=== PATIENT | male | born 1945 | race Caucasian/White ===

== ENCOUNTER 2022-07-19 20:23 | Emergency (ER) | payer OTHER ==
[~2022-07-19] VITALS: Ht 177.8 cm; Wt 75.0 kg
[2022-07-19] MEDS ORDERED: SERT-158 PO (20:49)
[2022-07-19] MEDS ORDERED: RIVA20TA PO (20:49)
[2022-07-19] MEDS ORDERED: FAMO20 PO (20:49)
[2022-07-19] MEDS ORDERED: MELA5TAB40 PO (20:49)
[2022-07-19] MEDS ORDERED: DIVA-112 PO (20:49)
[2022-07-19] MEDS ORDERED: QUET25TA PO (20:49)
[2022-07-19] MEDS ORDERED: CHOL10002 PO (20:49)
[2022-07-19 21:03] LABS: BASOPHILS % (AUTO) 0.6 % (0.0-2.0); HEMATOCRIT 35.2 % (41-53); HEMOGLOBIN 11.8 g/dL (13.5-17.5); LYMPHOCYTES # (AUTO) 2.1 K/uL (1.0-4.8); LYMPHOCYTES % (AUTO) 29.7 % (22.0-44.0); MEAN CORPUSCULAR HEMOGLOBIN 31.7 pg (26.0-34.0); MEAN CORPUSCULAR HGB CONC 33.6 G/dL (31.0-37.0); MEAN CORPUSCULAR VOLUME 94 fL (80-100); MONOCYTES # (AUTO) 0.8 K/uL (0.1-1.0); MONOCYTES % (AUTO) 11.1 % (2.0-9.0); NEUTROPHILS # (AUTO) 3.9 K/uL (1.8-7.7); NEUTROPHILS % (AUTO) 55.6 % (40.0-70.0); PLATELET COUNT (AUTO) 195 K/uL (150-450); RED BLOOD CELL COUNT(AUTO) 3.74 MIL/uL (4.50-5.90); RED CELL DISTRIBUTION WIDTH 13.2 % (11.5-14.5)
[2022-07-19 21:12] LABS: CALCIUM, TOTAL 8.7 mg/dL (8.8-10.5); CREATININE 1.31 mg/dL (0.60-1.30); POTASSIUM 4.2 mmol/L (3.5-5.1)
[2022-07-19 21:18] LABS: ALBUMIN 3.2 g/dL (3.4-5.0); BILIRUBIN,TOTAL 0.2 mg/dL (0.1-1.0); TOTAL PROTEIN, SERUM 6.5 g/dL (6.4-8.2)
[2022-07-19 21:23] LABS: AMMONIA 30 umol/L (11-32)
[2022-07-19 21:44] LABS: COVID AG,FIA SOURCE NASAL SWAB
[2022-07-19] MEDS ORDERED: MIDAZOLAM HCL 2 MG/2 ML VIAL IM ONE (21:45)
[2022-07-19] MEDS ORDERED: QUEtiapine FUMARATE 100 MG TABLET PO ONE (22:30)
[2022-07-19] MEDS ORDERED: MELATONIN 5 MG TABLET PO ONE (22:30)
[2022-07-19 23:43] VITALS: BP 133/73
== END 2022-07-20 03:22 | disposition home or self-care (01) ==
LOC: EMS 20:23
DX: R45.1 Restlessness and agitation (principal); F03.91 Unspecified dementia, unspecified severity, with behavioral disturbance; R00.1 Bradycardia, unspecified; Z20.822 Contact with and (suspected) exposure to COVID-19
CPT/HCPCS: 99291; 70450; 87426; 80053; 80164; 82140; 83605; 84484; 85025; 36415; 71045; 93005; 96372; G0480; J2250; Q9967